=== PATIENT | female | born 1955 | race Caucasian/White ===

== ENCOUNTER 2017-01-01 00:35 | Day surgery (SDC) | payer OTHER ==
[~2017-01-01] VITALS: Ht 170.2 cm; Wt 88.0 kg
[2017-01-01] VITALS (13 sets, daily range): BP systolic 115–185; BP diastolic 66–101; PULSE 50–76; RESP 13–17; O2SAT 93–100
[~2017-01-01 00:35] MED LIST: ASCO-294 PO; CA C1TAB86 PO; CHOL40003 PO; LISI10TA PO; VIT1TABL83 PO
--- NOTE | 2017-01-01 13:33 | NUR ---
Admit [facility] Admitted to [facility] 6 about 1215. VSS. Denies pain. Tele SB. Difficult IV start. IVT called. Kellee CRUZ RN attempted x2 and Saud Muñoz RN Placed 2 peripheral IVs, see EMR. Procedure and recovery reviewed. 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 Addendum: 01/01/17 at 1706 by WINSTON BAUM RN Advance directive info provided
[2017-01-01 13:35] LABS: BASOPHILS % (AUTO) 0.4 % (0-3); EOSINOPHILS % (AUTO) 3.4 % (0-5); MONOCYTES % (AUTO) 7.7 % (4-12); Mean Corpuscular Hemoglobin 29.1 pg (27.0-35.0); Mean Corpuscular Volume 87.6 fL (81-100); NEUTROPHILS % (AUTO) 52.4 % (40-74); Platelet Count 204 bil/L (150-400)
[2017-01-01 13:46] LABS: INR 0.99 ratio
[2017-01-01] MEDS ORDERED: Heparin 10,000 Unit/1,000 mL NS Premix IV ONE (14:43)
[2017-01-01] MEDS ORDERED: Nitroglycerin 50,000 mcg/250 mL D5W Premix IV ONE (14:43)
[2017-01-01] MEDS ORDERED: Heparin 1,000 Units/500 mL NS Premix IV ONE (14:43)
[2017-01-01] MEDS ORDERED: fentaNYL-PF 50 mCg/mL 2 mL Inj ONE (15:05)
[2017-01-01] MEDS ORDERED: Hydrocortisone 50 mg/mL 2 mL Inj ONE (16:20)
[2017-01-01] MEDS ORDERED: MethylprednisoLONE Sodium Succinate 62.5 mg/mL 2 mL Inj ONE (16:21)
--- NOTE | 2017-01-01 16:56 | NUR ---
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 Received about 1615. VSS but then tech noted redness beginning in face and few small hives on right side. Denied pain or SOB but stated face tingly. Allergic to diphenhydramine. Dr. Gonzalez notified and Solumedrol 125mg IVP ordered and given with resolution of sx within 15 min. Comfort measures provided and states feels better. Taking po food and fluid well. Tele SB-SR. IVF infusing per orders. Groin stable. Monitor per orders.
--- NOTE | 2017-01-01 17:32 | CS94 ---
[address] [address] DIAGNOSTIC CARDIAC CATHETERIZATION PATIENT: EDER LEWIS : 1955 MR#: [id number] ADMIT: 01/01/2017 JOB ID: [id number] SERVICE DATE: 01/01/2017 PROCEDURE: 1. Retrograde left heart catheterization. 2. Selective left and right coronary angiography. 3. Left ventricular cineangiography. 4. Root angiography. INDICATION: The patient is a 61-year-old, delightful woman with a known history of chest discomfort. She had a pharmacological stress test demonstrated normal preserved systolic function, however, inferior, inferolateral wall ischemia. To further evaluate her, a coronary angiography was scheduled. CONSENT: The patient was explained the risks, benefits, and alternatives of procedure and informed signed consent was obtained and placed in the chart. DESCRIPTION OF PROCEDURE: The patient was brought to the cath laboratory and placed on the cath table. Both groins were prepped and draped in the usual sterile manner. Using a modified Seldinger technique, a 6-Greenlandic arterial sheath was placed in the right femoral artery without any difficulty. Subsequently, FR4 catheter was used to engage the left main coronary artery and multiple views of the left coronary artery were obtained in multiple projections. An FR4 catheter was used to engage the right coronary artery, and right coronary angiography was performed. Subsequently, a 5-Greenlandic FR4 catheter was used because of the hypotension with large caliber. Solu-Cortef 100 mg IV. A 5-Greenlandic FR4 catheter was used and coronary angiography was performed. The views demonstrated AV malformation draining into the right atrium. The pigtail catheter was advanced across the aortic valve and placed into the left ventricle. Left ventricular hemodynamics was obtained. Subsequently, left ventricular cineangiography was performed. In some views, the root appeared to be hypoplastic, therefore root angiography was performed as well. FINDINGS: The left coronary system is angiographically normal. Left main artery is angiographically normal. The left anterior descending artery is angiographically normal. The left circumflex coronary artery is angiographically normal. The obtuse marginal branches are angiographically normal. The right coronary artery is a nondominant vessel. On prolonged fluoro, there are AV malformations noted extending into the right atrium and right ventricular wall and then extending inferiorly and filling up the left circumflex coronary arteries. The contrast was noted draining into the right atrium. The root angiography demonstrated normal root size. Trace to mild aortic regurgitation noted. Left ventricular cineangiography demonstrated normal LV function. The left ventricular end-diastolic pressure was 20-25 mmHg. IMPRESSION: 1. Angiographically normal coronaries. 2. 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 3. Normal left ventricular function. 4. Elevated left ventricular end-diastolic pressure. MTDD
--- NOTE | 2017-01-01 20:37 | NUR ---
Recovery/Discharge Assessment unchanged. BP normalized after eating. Bedrest complete at 2015. Up to bathroom and in bhatt without change in groin. Discharge instructions given, see sheets. Verbalizes understanding. IVs discontinued intact. Discharged ambulatory with all belongings with family in no distress at 2030.
== END 2017-01-01 23:59 | disposition home or self-care (01) ==
LOC: SOUO 00:35
PROVIDERS: ATTEND Internal Medicine Cardiovascular Disease
DX: R07.89 Other chest pain (principal); R94.39 Abnormal result of other cardiovascular function study; Z88.6 Allergy status to analgesic agent; Q24.5 Malformation of coronary vessels
CPT/HCPCS: 36415; 80048; 85025; 85610; 93005; 93458; 93567; 99152; 99153; C1769; J1644; J2250; J2930; J3010; Q9967